=== PATIENT | female | born 1975 | race Caucasian/White ===

== ENCOUNTER 2018-03-28 16:36 | Emergency (ER) | payer OTHER ==
[~2018-03-28] VITALS: Ht 162.6 cm; Wt 62.1 kg
[~2018-03-28 16:36] MED LIST: FERGON324 MG PO; IBUPROFEN800 MG PO; NORCO 5/3251 TABLET PO; PRENATAL TABLE1 EAC3 PO
[2018-03-28 17:50] LABS: ALBUMIN 4.7 g/dL (3.2-4.8); CHLORIDE 107 mEq/L (99-109); POTASSIUM 3.7 mEq/L (3.7-5.4); SODIUM 138 mEq/L (136-147)
[2018-03-28 17:52] LABS: GLUCOSE 107 mg/dL (70-99); TOTAL PROTEIN 8.1 g/dL (6.4-8.3)
[2018-03-28 17:56] LABS: ALKALINE PHOSPHATASE 41 IU/L (3-129); CREATININE 0.8 mg/dL (0.6-1.3); GFR ESTIMATE (CALCULATED) > 59 mL/min/
[2018-03-28 17:57] LABS: UREA NITROGEN (BUN) 12 mg/dL (9-23)
[2018-03-28 17:58] LABS: AST (GOT) 15 IU/L (2-34)
[2018-03-28 17:59] LABS: ALT (GPT) 13 IU/L (3-49)
[2018-03-28 18:04] LABS: QUANTITATIVE HCG < 4.0 MIU/ML
[2018-03-28 18:30] VITALS: BP 105/69
[2018-03-28] MEDS ORDERED: ZOFRAN ODT8 MG PO (18:32)
== END 2018-03-28 18:35 | disposition home or self-care (01) ==
LOC: EME 16:36
DX: R19.7 Diarrhea, unspecified (principal)
CPT/HCPCS: 80053; 81003; 84702; 85027; 99281; 99283